=== PATIENT | male | born 1965 | race Caucasian/White ===

== ENCOUNTER 2025-05-18 11:04 | Emergency (ER) | payer BC ==
[~2025-05-18] VITALS: Ht 177.8 cm; Wt 97.5 kg
[~2025-05-18 11:04] MED LIST: FLOMAX0.4 MG PO; KEFLEX500 M1 PO; KETOROLAC10 MG PO; LEVOTHYROXIN0.175 MG PO; MOTRIN800 MG PO; NAPROSYN500 MG PO; ULTRAM50 MG PO
[2025-05-18] MEDS ORDERED: IOHEXOL 350 MG/ML 100 ML VIAL IV ONE (12:05)
[2025-05-18] MEDS ORDERED: SODIUM CHLORIDE 0.9% 100 ML BAG IV ONE (12:05)
[2025-05-18 12:35] LABS: BASO # 0.1 10*3/uL (0.0-0.1); BASO % 0.8 % (0.0-1.0); EOS # 0.3 10*3/uL (0.0-0.4); EOS % 3.5 % (1.0-4.0); MEAN CELL VOLUME 95.9 fl (80.0-94.0); MEAN CORPUSCULAR HGB 31.0 pg (27.0-31.0); MEAN PLATELET VOLUME 9.1 fl (9.6-12.3); MONO # 1.0 10*3/uL (0.1-1.0); MONO % 10.0 % (3.0-9.0); NEUT # 6.7 10*3/uL (2.3-7.9); NEUT % 68.7 % (47.0-73.0); NUCLEATED RED BLOOD CELL 0.0 % (0.0-0.0); NUCLEATED RED BLOOD CELL 0.0 10*3/uL (0.0-0.0); PLATELET COUNT AUTOMATED 287 10*3/uL (130-400); RED CELL DISTRI WIDTH 13.6 % (0-14.5)
[2025-05-18 12:55] LABS: BUN 10 mg/dl (9-23)
== END 2025-05-18 23:38 | disposition short-term general hospital (02) ==
LOC: ED 11:04
PROVIDERS: Emergency Medicine
DX: J90 Pleural effusion, not elsewhere classified (principal); R93.89 Abnormal findings on diagnostic imaging of other specified body structures; D84.9 Immunodeficiency, unspecified; M06.9 Rheumatoid arthritis, unspecified; E78.00 Pure hypercholesterolemia, unspecified; F17.210 Nicotine dependence, cigarettes, uncomplicated; Z88.5 Allergy status to narcotic agent